=== PATIENT | male | born 1950 | race Caucasian/White ===

== ENCOUNTER 2017-06-13 12:46 | Inpatient (IN) ==
[2017-06-13] MEDS ORDERED: methylPREDNISolone SOD SUC 125 MG/2 ML VIAL IV STA (14:19)
[2017-06-13] MEDS ORDERED: LEVOFLOXACIN INJ 750 MG in PREMIX 1 EACH IV STA (14:19)
[2017-06-13] MEDS ORDERED: ONDANSETRON 4 MG/2 ML VIAL IV STA (14:19)
[2017-06-13] MEDS ORDERED: ALBUTEROL 2.5 MG/3 ML NEB RESP TX SCH (14:30)
[2017-06-13 15:04] LABS: Basophils % 0.6 % (0.0-0.8); Eosinophils # 0.1 10*3/uL (0.0-0.87); Eosinophils % 1.9 % (0.00-10.9); Hematocrit 25.8 VOL% (42.0-52.0); Hemoglobin 8.9 GM/DL (14.0-18.0); Immature Granulocytes % 0.9 %; Immature Granulocytes Absolute 0.04 #; Lymphocytes # 0.5 10*3/uL (1.4-4.0); Lymphocytes % 9.9 % (21.2-54.2); Mean Corpuscular HGB Conc 34.5 GM/DL (32-36); Mean Corpuscular Hemoglobin 35 PG (27-34); Mean Corpuscular Volume 101.6 FL (87-102); Mean Platelet Volume 8.5 FL (9.6-12.0); Monocytes # 0.5 10*3/uL (0.11-0.8); Neutrophils # 3.5 10*3/uL (1.4-7.4); Neutrophils % 75.7 % (38.7-73.9); Platelet Count 173 T/CUMM (130-400); Red Blood Count 2.54 MC/CUMM (3.8-5.5); Red Cell Distribution Width 12.7 % (9.3-17.3); White Blood Count 4.6 T/CUMM (4-12)
[2017-06-13] MEDS ORDERED: methylPREDNISolone SOD SUC 125 MG/2 ML VIAL ONE (15:08)
[2017-06-13] MEDS ORDERED: LEVOFLOXACIN INJ 150 ML IV ONE (15:08)
[2017-06-13] MEDS ORDERED: ONDANSETRON 4 MG/2 ML VIAL ONE (15:08)
[2017-06-13 15:16] LABS: INR 1.1; PT Patient Result 11.3 SECS
[2017-06-13] MEDS ORDERED: SODIUM CHLORIDE 0.9% 1,000 ML IV STA (15:29)
[2017-06-13 15:38] LABS: Alanine Aminotransferase 25 U/L (16-61); Albumin 3.8 G/DL (3.4-5.0); Alkaline Phosphatase 54 U/L (45-117); Aspartate Amino Transferase 79 U/L (0-37); Blood Urea Nitrogen 9 MG/DL (7-18); CKMB % 1.9 %; Calcium 7.7 MG/DL (8.5-10.1); Glucose 91 MG/DL (74-106); Magnesium 1.7 MG/DL (1.8-2.4); Osmolality,Calculated 245.8 MOS/KG (273-304); Potassium 3.2 MMOL/L (3.5-5.1); Sodium 123 MMOL/L (136-145); Total Protein 7.1 G/DL (6.4-8.3); Troponin I Only < 0.015 NG/ML (0.00-0.045)
[2017-06-13] MEDS ORDERED: ONDANSETRON 4 MG/2 ML VIAL IV PRN (17:37)
[2017-06-13] MEDS ORDERED: MORPHINE 2 MG/1 ML SYRINGE IV PRN (17:37)
[2017-06-13] MEDS ORDERED: guaiFENesin/DM ER 600-30 MG TABLET PO PRN (17:37)
[2017-06-13] MEDS ORDERED: NICOTINE 21 MG/24 HR PATCH TRANSDERM PRN (17:37)
[2017-06-13] MEDS ORDERED: diphenhydrAMINE CAP 25 MG CAPSULE PO PRN (17:37)
[2017-06-13] MEDS ORDERED: ACETAMINOPHEN 325 MG TABLET PO PRN (17:37)
[2017-06-13] MEDS ORDERED: DOCUSATE SODIUM 100 MG CAPSULE PO PRN (17:37)
[2017-06-13] MEDS ORDERED: ALBUTEROL 2.5 MG/3 ML NEB RESP TX PRN (17:41)
[2017-06-13] MEDS ORDERED: SODIUM CHLORIDE 0.9% 1,000 ML IV ONE (17:49)
[2017-06-13] MEDS ORDERED: LORazepam 1 MG TABLET PO PRN (17:54)
[2017-06-13] MEDS ORDERED: MAGNESIUM SULF RIDER 4 GM in PREMIX 1 EACH IV PRN (17:56)
[2017-06-13] MEDS ORDERED: MAGNESIUM SULF RIDER 2 GM in PREMIX 1 EACH IV PRN (17:56)
[2017-06-13] MEDS ORDERED: THIAMINE INJ 100 MG, FOLIC ACID INJ 1 MG, MULTIVITAMIN INJ 10 ML in SODIUM CHLORIDE 0.9... IV SCH (18:00)
[2017-06-13] MEDS ORDERED: SODIUM CHLORIDE 0.9% 1,000 ML IV SCH (18:00)
[2017-06-13] MEDS ORDERED: POTASSIUM CHLORIDE 20 MEQ TABLET PO ONE (18:30)
[2017-06-13] MEDS: fentaNYL 12 MCG/HR PATCH TRANSDERM SCH (18:57)
[2017-06-13] MEDS: ALBUTEROL/IPRATROPIUM 3 ML NEB RESP TX SCH (20:16)
[2017-06-13] MEDS: 1: THIAMINE INJ 100 MG, FOLIC ACID INJ 1 MG, MULTIVITAMIN INJ 10 ML in SODIUM CHLORIDE 0 IV SCH (21:16)
[2017-06-13] MEDS: AZITHROMYCIN INJ 500 MG in SODIUM CHLORIDE 0.9% 250 ML IV SCH (21:19)
[2017-06-13] MEDS: cefTRIAXone 1,000 MG in SYRINGE 1 EACH IV SCH (21:21)
[2017-06-13] MEDS: BUDESONIDE/FORMOTEROL 160-4.5 INHALER 6 GM INH SCH (21:26)
[2017-06-14] MEDS: ALBUTEROL/IPRATROPIUM 3 ML NEB RESP TX SCH ×4 (00:35→19:22)
[2017-06-14 04:48] LABS: Basophils % 0.2 % (0.0-0.8); Hematocrit 24.2 VOL% (42.0-52.0); Hemoglobin 8.3 GM/DL (14.0-18.0); Immature Granulocytes % 0.9 %; Immature Granulocytes Absolute 0.05 #; Lymphocytes # 0.2 10*3/uL (1.4-4.0); Lymphocytes % 3.6 % (21.2-54.2); Mean Corpuscular HGB Conc 34.3 GM/DL (32-36); Mean Corpuscular Hemoglobin 35 PG (27-34); Mean Platelet Volume 8.7 FL (9.6-12.0); Monocytes # 0.2 10*3/uL (0.11-0.8); Monocytes % 2.9 % (1.7-12.7); Neutrophils # 5.1 10*3/uL (1.4-7.4); Neutrophils % 92.4 % (38.7-73.9); Platelet Count 165 T/CUMM (130-400); Red Blood Count 2.35 MC/CUMM (3.8-5.5); Red Cell Distribution Width 12.4 % (9.3-17.3); White Blood Count 5.5 T/CUMM (4-12)
[2017-06-14 05:25] LABS: Calcium 6.8 MG/DL (8.5-10.1); Magnesium 1.6 MG/DL (1.8-2.4); Osmolality,Calculated 256.1 MOS/KG (273-304); Potassium 4.1 MMOL/L (3.5-5.1)
[2017-06-14] MEDS: methylPREDNISolone SOD SUC 40 MG/1 ML VIAL IV SCH ×3 (05:28→20:37)
[2017-06-14 06:02] LABS: Band Neutrophils 2 % (0-10); Lymphocytes 5 % (20-55); Promyelocytes 1 %; Segmented Neutrophils 87 % (50-85); Total Cells Counted 100
[2017-06-14 06:03] LABS: Hypochromasia 1+; Macrocytosis Slight; Platelet Estimate Adequate
[2017-06-14] MEDS: PANTOPRAZOLE 40 MG TABLET PO SCH (08:47)
[2017-06-14] MEDS: BUDESONIDE/FORMOTEROL 160-4.5 INHALER 6 GM INH SCH ×2 (08:47→20:35)
[2017-06-14] MEDS: TAMSULOSIN 0.4 MG CAPSULE PO SCH (08:47)
[2017-06-14] MEDS: ASPIRIN EC 81 MG TABLET PO SCH (08:47)
[2017-06-14] MEDS: 1: THIAMINE INJ 100 MG, FOLIC ACID INJ 1 MG, MULTIVITAMIN INJ 10 ML in SODIUM CHLORIDE 0 IV SCH ×2 (08:49→14:05)
[2017-06-14] MEDS: oxyCODONE/ACETAMINOPHEN 5-325 MG TABLET PO PRN ×2 (08:53→18:01)
[2017-06-14 10:50] LABS: Apearance,Urine CLEAR (Clear); Bilirubin,Urine Negative (Negative); Blood, Urine Small mg/dL (Negative); Glucose,Urine (UA) Negative (Negative); Ketones,Urine Negative (Negative); Mucus,Urine Occasional /LPF (Occasional); Nitrite,Urine Negative (Negative); Protein,Urine Negative; RBC,Urine 20 /HPF (0-4); Squamous Epithelial Cell,Urine Occasional /HPF (0-10); Urine Color Amber (Yellow); Urine Specific Gravity 1.014 (1.001-1.035); WBC,Urine 2 /HPF (0-6)
[2017-06-14] MEDS: NICOTINE 21 MG/24 HR PATCH TRANSDERM SCH (12:07)
[2017-06-14] MEDS ORDERED: CALCIUM GLUCONATE 2,000 MG in SODIUM CHLORIDE 0.9% 100 ML IV ONE (15:48)
[2017-06-14] MEDS ORDERED: MAGNESIUM SULF RIDER 2 GM in PREMIX 1 EACH IV ONE (15:49)
[2017-06-14] MEDS: SODIUM CHLORIDE 0.9% 1,000 ML IV SCH (17:17)
[2017-06-14] MEDS: cefTRIAXone 1,000 MG in SYRINGE 1 EACH IV SCH (20:35)
[2017-06-14] MEDS: AZITHROMYCIN INJ 500 MG in SODIUM CHLORIDE 0.9% 250 ML IV SCH (20:40)
[2017-06-15] MEDS: ALBUTEROL/IPRATROPIUM 3 ML NEB RESP TX SCH ×4 (00:03→19:47)
[2017-06-15] MEDS: SODIUM CHLORIDE 0.9% 1,000 ML IV SCH ×2 (01:50→14:21)
[2017-06-15] MEDS: oxyCODONE/ACETAMINOPHEN 5-325 MG TABLET PO PRN ×3 (01:52→18:15)
[2017-06-15] MEDS: methylPREDNISolone SOD SUC 40 MG/1 ML VIAL IV SCH ×3 (04:58→20:21)
[2017-06-15 05:44] LABS: Basophils % 0.2 % (0.0-0.8); Hemoglobin 8.3 GM/DL (14.0-18.0); Immature Granulocytes % 1.5 %; Immature Granulocytes Absolute 0.16 #; Lymphocytes # 0.4 10*3/uL (1.4-4.0); Lymphocytes % 3.3 % (21.2-54.2); Mean Corpuscular HGB Conc 33.2 GM/DL (32-36); Mean Corpuscular Hemoglobin 34 PG (27-34); Mean Corpuscular Volume 103.7 FL (87-102); Mean Platelet Volume 9.1 FL (9.6-12.0); Monocytes # 0.9 10*3/uL (0.11-0.8); Monocytes % 7.7 % (1.7-12.7); Neutrophils # 9.6 10*3/uL (1.4-7.4); Neutrophils % 87.3 % (38.7-73.9); Platelet Count 208 T/CUMM (130-400); Red Blood Count 2.41 MC/CUMM (3.8-5.5); Red Cell Distribution Width 13.1 % (9.3-17.3)
[2017-06-15 06:18] LABS: Albumin 3.5 G/DL (3.4-5.0); Bilirubin,Total 0.7 MG/DL (0.2-1.0); Calcium 7.5 MG/DL (8.5-10.1); Osmolality,Calculated 261.7 MOS/KG (273-304); Total Protein 6.3 G/DL (6.4-8.3)
[2017-06-15 06:48] LABS: Band Neutrophils 26 % (0-10); Lymphocytes 4 % (20-55); Segmented Neutrophils 66 % (50-85); Total Cells Counted 100
[2017-06-15] MEDS: BUDESONIDE/FORMOTEROL 160-4.5 INHALER 6 GM INH SCH ×2 (08:38→20:30)
[2017-06-15] MEDS: NICOTINE 21 MG/24 HR PATCH TRANSDERM SCH (08:38)
[2017-06-15] MEDS: PANTOPRAZOLE 40 MG TABLET PO SCH (08:39)
[2017-06-15] MEDS: TAMSULOSIN 0.4 MG CAPSULE PO SCH (08:39)
[2017-06-15] MEDS: ASPIRIN EC 81 MG TABLET PO SCH (08:39)
[2017-06-15] MEDS: 1: THIAMINE INJ 100 MG, FOLIC ACID INJ 1 MG, MULTIVITAMIN INJ 10 ML in SODIUM CHLORIDE 0 IV SCH (10:53)
[2017-06-15] MEDS ORDERED: SODIUM PHOSPHATE ENEMA 133 ML BOTTLE RECTAL ONE ×2 (11:38→15:28)
[2017-06-15] MEDS ORDERED: BISACODYL 5 MG TABLET PO ONE (11:38)
[2017-06-15] MEDS: cefTRIAXone 1,000 MG in SYRINGE 1 EACH IV SCH (20:18)
[2017-06-15] MEDS: ZALEPLON 5 MG CAPSULE PO SCH (20:24)
[2017-06-15] MEDS: AZITHROMYCIN INJ 500 MG in SODIUM CHLORIDE 0.9% 250 ML IV SCH (20:30)
[2017-06-16] MEDS: ALBUTEROL/IPRATROPIUM 3 ML NEB RESP TX SCH ×4 (01:25→19:46)
[2017-06-16] MEDS: oxyCODONE/ACETAMINOPHEN 5-325 MG TABLET PO PRN ×3 (03:19→17:42)
[2017-06-16] MEDS: methylPREDNISolone SOD SUC 40 MG/1 ML VIAL IV SCH ×4 (03:20→21:45)
[2017-06-16] MEDS: SODIUM CHLORIDE 0.9% 1,000 ML IV SCH (04:57)
[2017-06-16 05:06] LABS: Basophils % 0.1 % (0.0-0.8); Hematocrit 25.5 VOL% (42.0-52.0); Hemoglobin 8.7 GM/DL (14.0-18.0); Immature Granulocytes % 1.6 %; Immature Granulocytes Absolute 0.17 #; Lymphocytes # 0.4 10*3/uL (1.4-4.0); Lymphocytes % 3.4 % (21.2-54.2); Mean Corpuscular HGB Conc 34.1 GM/DL (32-36); Mean Corpuscular Hemoglobin 36 PG (27-34); Mean Corpuscular Volume 104.1 FL (87-102); Mean Platelet Volume 8.9 FL (9.6-12.0); Monocytes # 0.5 10*3/uL (0.11-0.8); Monocytes % 4.2 % (1.7-12.7); Neutrophils # 9.7 10*3/uL (1.4-7.4); Neutrophils % 90.7 % (38.7-73.9); Platelet Count 209 T/CUMM (130-400); Red Blood Count 2.45 MC/CUMM (3.8-5.5); Red Cell Distribution Width 13.2 % (9.3-17.3); White Blood Count 10.7 T/CUMM (4-12)
[2017-06-16 05:31] LABS: Albumin 3.5 G/DL (3.4-5.0); Bilirubin,Total 0.5 MG/DL (0.2-1.0); Calcium 7.2 MG/DL (8.5-10.1); Osmolality,Calculated 255.1 MOS/KG (273-304); Potassium 4.2 MMOL/L (3.5-5.1); Total Protein 6.4 G/DL (6.4-8.3)
[2017-06-16 05:54] LABS: Band Neutrophils 3 % (0-10); Lymphocytes 4 % (20-55); Segmented Neutrophils 91 % (50-85); Total Cells Counted 100
[2017-06-16 05:56] LABS: Hypochromasia 1+; Platelet Estimate Normal
[2017-06-16] MEDS: NICOTINE 21 MG/24 HR PATCH TRANSDERM SCH (08:54)
[2017-06-16] MEDS: TAMSULOSIN 0.4 MG CAPSULE PO SCH (08:55)
[2017-06-16] MEDS: ASPIRIN EC 81 MG TABLET PO SCH (08:55)
[2017-06-16] MEDS: PANTOPRAZOLE 40 MG TABLET PO SCH (08:55)
[2017-06-16] MEDS: BUDESONIDE/FORMOTEROL 160-4.5 INHALER 6 GM INH SCH ×2 (08:58→21:49)
[2017-06-16] MEDS ORDERED: FUROSEMIDE 20 MG/2 ML VIAL IV ONE ×2 (10:35→14:52)
[2017-06-16] MEDS ORDERED: CALCIUM GLUCONATE 2,000 MG in SODIUM CHLORIDE 0.9% 100 ML IV ONE (14:31)
[2017-06-16] MEDS: CEFEPIME 2,000 MG in SYRINGE 1 EACH IV SCH (15:51)
[2017-06-16] MEDS: fentaNYL 12 MCG/HR PATCH TRANSDERM SCH (17:43)
[2017-06-16] MEDS: TOLVAPTAN 15 MG TABLET PO SCH (21:44)
[2017-06-16] MEDS: AZITHROMYCIN INJ 500 MG in SODIUM CHLORIDE 0.9% 250 ML IV SCH (21:53)
[2017-06-16] MEDS: ZALEPLON 5 MG CAPSULE PO SCH (23:18)
[2017-06-17] MEDS: CEFEPIME 2,000 MG in SYRINGE 1 EACH IV SCH ×3 (00:08→17:44)
[2017-06-17] MEDS: ALBUTEROL/IPRATROPIUM 3 ML NEB RESP TX SCH ×5 (00:26→23:53)
[2017-06-17 05:13] LABS: Basophils % 0.1 % (0.0-0.8); Hematocrit 27.6 VOL% (42.0-52.0); Hemoglobin 9.8 GM/DL (14.0-18.0); Immature Granulocytes % 2.2 %; Lymphocytes # 0.3 10*3/uL (1.4-4.0); Lymphocytes % 2.3 % (21.2-54.2); Mean Corpuscular HGB Conc 35.5 GM/DL (32-36); Mean Corpuscular Hemoglobin 36 PG (27-34); Mean Corpuscular Volume 101.1 FL (87-102); Mean Platelet Volume 8.9 FL (9.6-12.0); Monocytes # 0.7 10*3/uL (0.11-0.8); Monocytes % 5.1 % (1.7-12.7); Neutrophils # 12.3 10*3/uL (1.4-7.4); Neutrophils % 90.3 % (38.7-73.9); Platelet Count 239 T/CUMM (130-400); Red Blood Count 2.73 MC/CUMM (3.8-5.5); Red Cell Distribution Width 13.5 % (9.3-17.3); White Blood Count 13.6 T/CUMM (4-12)
[2017-06-17 05:40] LABS: Band Neutrophils 1 % (0-10); Lymphocytes 2 % (20-55); Segmented Neutrophils 91 % (50-85); Total Cells Counted 100
[2017-06-17 05:41] LABS: Hypochromasia 1+; Macrocytosis Slight; Platelet Estimate Normal
[2017-06-17 05:49] LABS: Albumin 3.7 G/DL (3.4-5.0); Bilirubin,Total 1.1 MG/DL (0.2-1.0); Calcium 7.6 MG/DL (8.5-10.1); Osmolality,Calculated 264.4 MOS/KG (273-304); Potassium 3.8 MMOL/L (3.5-5.1); Total Protein 6.7 G/DL (6.4-8.3)
[2017-06-17] MEDS: methylPREDNISolone SOD SUC 40 MG/1 ML VIAL IV SCH ×3 (06:04→20:46)
[2017-06-17] MEDS: TAMSULOSIN 0.4 MG CAPSULE PO SCH (09:06)
[2017-06-17] MEDS: ASPIRIN EC 81 MG TABLET PO SCH (09:19)
[2017-06-17] MEDS: BUDESONIDE/FORMOTEROL 160-4.5 INHALER 6 GM INH SCH ×2 (09:20→20:55)
[2017-06-17] MEDS: PANTOPRAZOLE 40 MG TABLET PO SCH (09:20)
[2017-06-17] MEDS: TOLVAPTAN 15 MG TABLET PO SCH (09:20)
[2017-06-17] MEDS ORDERED: POTASSIUM CHLORIDE 20 MEQ TABLET PO ONE (10:25)
[2017-06-17] MEDS ORDERED: FUROSEMIDE 40 MG/4 ML VIAL IV ONE (10:25)
[2017-06-17] MEDS: NICOTINE 21 MG/24 HR PATCH TRANSDERM SCH (11:06)
[2017-06-17] MEDS: oxyCODONE/ACETAMINOPHEN 5-325 MG TABLET PO PRN ×2 (13:48→21:20)
[2017-06-17] MEDS: AZITHROMYCIN INJ 500 MG in SODIUM CHLORIDE 0.9% 250 ML IV SCH (20:54)
[2017-06-18] MEDS: CEFEPIME 2,000 MG in SYRINGE 1 EACH IV SCH ×3 (00:20→17:37)
[2017-06-18 05:05] LABS: Basophils % 0.1 % (0.0-0.8); Hematocrit 26.4 VOL% (42.0-52.0); Hemoglobin 9.1 GM/DL (14.0-18.0); Immature Granulocytes % 2.5 %; Immature Granulocytes Absolute 0.34 #; Lymphocytes # 0.3 10*3/uL (1.4-4.0); Lymphocytes % 2.1 % (21.2-54.2); Mean Corpuscular HGB Conc 34.5 GM/DL (32-36); Mean Corpuscular Hemoglobin 35 PG (27-34); Mean Corpuscular Volume 102.7 FL (87-102); Monocytes # 0.7 10*3/uL (0.11-0.8); Monocytes % 5.2 % (1.7-12.7); Neutrophils # 12.2 10*3/uL (1.4-7.4); Neutrophils % 90.1 % (38.7-73.9); Platelet Count 226 T/CUMM (130-400); Red Blood Count 2.57 MC/CUMM (3.8-5.5); Red Cell Distribution Width 13.9 % (9.3-17.3); White Blood Count 13.6 T/CUMM (4-12)
[2017-06-18] MEDS: methylPREDNISolone SOD SUC 40 MG/1 ML VIAL IV SCH ×3 (05:16→20:56)
[2017-06-18 05:27] LABS: Calcium 7.9 MG/DL (8.5-10.1); Osmolality,Calculated 269.2 MOS/KG (273-304); Potassium 3.8 MMOL/L (3.5-5.1)
[2017-06-18 06:07] LABS: Hypochromasia 1+; Lymphocytes 3 % (20-55); Macrocytosis 1+; Segmented Neutrophils 91 % (50-85); Total Cells Counted 100
[2017-06-18 06:08] LABS: Platelet Estimate Normal
[2017-06-18] MEDS: PANTOPRAZOLE 40 MG TABLET PO SCH (08:43)
[2017-06-18] MEDS: TAMSULOSIN 0.4 MG CAPSULE PO SCH (08:43)
[2017-06-18] MEDS: ASPIRIN EC 81 MG TABLET PO SCH (08:43)
[2017-06-18] MEDS: NICOTINE 21 MG/24 HR PATCH TRANSDERM SCH (08:43)
[2017-06-18] MEDS: BUDESONIDE/FORMOTEROL 160-4.5 INHALER 6 GM INH SCH ×2 (08:48→21:04)
[2017-06-18] MEDS: oxyCODONE/ACETAMINOPHEN 5-325 MG TABLET PO PRN ×3 (11:04→23:53)
[2017-06-18] MEDS: ALBUTEROL/IPRATROPIUM 3 ML NEB RESP TX SCH ×4 (11:18→23:56)
[2017-06-18] MEDS: TOLVAPTAN 15 MG TABLET PO SCH (15:46)
[2017-06-18] MEDS: AZITHROMYCIN INJ 500 MG in SODIUM CHLORIDE 0.9% 250 ML IV SCH (21:07)
[2017-06-19] MEDS: CEFEPIME 2,000 MG in SYRINGE 1 EACH IV SCH ×2 (02:56→09:05)
[2017-06-19 05:14] LABS: Basophils % 0.2 % (0.0-0.8); Hematocrit 24.8 VOL% (42.0-52.0); Hemoglobin 8.3 GM/DL (14.0-18.0); Immature Granulocytes % 2.7 %; Immature Granulocytes Absolute 0.34 #; Lymphocytes # 0.4 10*3/uL (1.4-4.0); Lymphocytes % 2.9 % (21.2-54.2); Mean Corpuscular HGB Conc 33.5 GM/DL (32-36); Mean Corpuscular Hemoglobin 36 PG (27-34); Mean Corpuscular Volume 106.4 FL (87-102); Monocytes # 0.6 10*3/uL (0.11-0.8); Monocytes % 5.1 % (1.7-12.7); Neutrophils # 11.3 10*3/uL (1.4-7.4); Neutrophils % 89.1 % (38.7-73.9); Platelet Count 203 T/CUMM (130-400); Red Blood Count 2.33 MC/CUMM (3.8-5.5); Red Cell Distribution Width 13.9 % (9.3-17.3); White Blood Count 12.6 T/CUMM (4-12)
[2017-06-19 05:36] LABS: Band Neutrophils 2 % (0-10); Giant Platelets Few; Hypochromasia 1+; Lymphocytes 1 % (20-55); Macrocytosis Slight; Platelet Estimate Adequate; Segmented Neutrophils 95 % (50-85); Total Cells Counted 100
[2017-06-19 05:38] LABS: Calcium 7.6 MG/DL (8.5-10.1); Osmolality,Calculated 272.1 MOS/KG (273-304); Potassium 3.8 MMOL/L (3.5-5.1)
[2017-06-19] MEDS: ALBUTEROL/IPRATROPIUM 3 ML NEB RESP TX SCH ×2 (06:58→13:52)
[2017-06-19] MEDS: methylPREDNISolone SOD SUC 40 MG/1 ML VIAL IV SCH ×2 (07:39→14:04)
[2017-06-19] MEDS: TAMSULOSIN 0.4 MG CAPSULE PO SCH (09:08)
[2017-06-19] MEDS: TOLVAPTAN 15 MG TABLET PO SCH (09:08)
[2017-06-19] MEDS: NICOTINE 21 MG/24 HR PATCH TRANSDERM SCH (09:08)
[2017-06-19] MEDS: BUDESONIDE/FORMOTEROL 160-4.5 INHALER 6 GM INH SCH (09:08)
[2017-06-19] MEDS: PANTOPRAZOLE 40 MG TABLET PO SCH (09:09)
[2017-06-19] MEDS: ASPIRIN EC 81 MG TABLET PO SCH (09:09)
[2017-06-19] MEDS: oxyCODONE/ACETAMINOPHEN 5-325 MG TABLET PO PRN (10:18)
[2017-06-19] MEDS ORDERED: HEPARIN LOCK FLUSH 500 UNIT/5 ML SYRINGE IV ONE (13:46)
[2017-06-19 13:52] VITALS: BP 119/60
== END 2017-06-19 14:45 | disposition home health service (06) | DRG 194 ==
LOC: N.ED 12:46 → N.EDINP 17:04 → N.4E 17:56
PROVIDERS: ADMIT Internal Medicine; ATTEND Internal Medicine

== ENCOUNTER 2017-06-23 19:21 | Inpatient (IN) ==
[2017-06-23 20:58] LABS: Basophils % 0.1 % (0.0-0.8); Eosinophils % 0.1 % (0.00-10.9); Hematocrit 25.3 VOL% (42.0-52.0); Hemoglobin 8.8 GM/DL (14.0-18.0); Immature Granulocytes % 2.1 %; Immature Granulocytes Absolute 0.26 #; Lymphocytes # 0.4 10*3/uL (1.4-4.0); Lymphocytes % 3.6 % (21.2-54.2); Mean Corpuscular HGB Conc 34.8 GM/DL (32-36); Mean Corpuscular Hemoglobin 36 PG (27-34); Mean Corpuscular Volume 102.8 FL (87-102); Mean Platelet Volume 8.8 FL (9.6-12.0); Monocytes % 8.5 % (1.7-12.7); Neutrophils # 10.5 10*3/uL (1.4-7.4); Neutrophils % 85.6 % (38.7-73.9); Platelet Count 196 T/CUMM (130-400); Red Blood Count 2.46 MC/CUMM (3.8-5.5); Red Cell Distribution Width 13.1 % (9.3-17.3); White Blood Count 12.2 T/CUMM (4-12)
[2017-06-23 21:07] LABS: INR 1.2; PT Patient Result 12.2 SECS
[2017-06-23 21:13] LABS: Blood Urea Nitrogen 17 MG/DL (7-18); Calcium 8.2 MG/DL (8.5-10.1); Glucose 99 MG/DL (74-106); Osmolality,Calculated 254.4 MOS/KG (273-304); Potassium 3.6 MMOL/L (3.5-5.1); Sodium 126 MMOL/L (136-145)
[2017-06-23 21:19] LABS: CKMB % 2.6 %; Troponin I Only 0.018 NG/ML (0.00-0.045)
[2017-06-23] MEDS ORDERED: SODIUM CHLORIDE 0.9% 500 ML IV STA (21:30)
[2017-06-23] MEDS ORDERED: TEMAZEPAM 7.5 MG CAPSULE PO PRN (23:06)
[2017-06-23] MEDS ORDERED: chlorproMAZINE INJ 50 MG in SODIUM CHLORIDE 0.9% 100 ML IV PRN (23:06)
[2017-06-23] MEDS ORDERED: diphenhydrAMINE CAP 25 MG CAPSULE PO PRN (23:06)
[2017-06-23] MEDS ORDERED: ACETAMINOPHEN 325 MG TABLET PO PRN (23:06)
[2017-06-23] MEDS ORDERED: LACTULOSE 20 GM/30 ML UDCUP PO PRN (23:06)
[2017-06-23] MEDS ORDERED: LOPERAMIDE 2 MG CAPSULE PO PRN ×2 (23:06)
[2017-06-23] MEDS ORDERED: chlorproMAZINE 25 MG TABLET PO PRN (23:06)
[2017-06-23] MEDS ORDERED: chlorproMAZINE INJ 25 MG in SODIUM CHLORIDE 0.9% 100 ML IV PRN (23:06)
[2017-06-23] MEDS ORDERED: ALUMINUM/MAGNES/SIMETH MAX STR 30 ML UDCUP PO PRN (23:06)
[2017-06-23] MEDS ORDERED: PROMETHAZINE INJ 25 MG in SODIUM CHLORIDE 0.9% 50 ML IV PRN (23:06)
[2017-06-23] MEDS ORDERED: ONDANSETRON 4 MG/2 ML VIAL IV PRN (23:06)
[2017-06-23] MEDS ORDERED: BENZTROPINE 2 MG/2 ML AMP IV PRN (23:06)
[2017-06-23] MEDS ORDERED: guaiFENesin 200 MG/10 ML UDCUP PO PRN (23:06)
[2017-06-23] MEDS ORDERED: MYLANTA/LIDO VISC 2:1 300 ML BOTTLE SWISH/SWAL PRN (23:06)
[2017-06-23] MEDS ORDERED: traMADol 50 MG TABLET PO PRN (23:06)
[2017-06-23] MEDS ORDERED: ALPRAZolam 0.25 MG TABLET PO PRN (23:06)
[2017-06-23] MEDS ORDERED: MAGNESIUM HYDROXIDE SUSP 30 ML UDCUP PO PRN (23:06)
[2017-06-23] MEDS ORDERED: MYLANTA/LIDO VISC 2:1 300 ML BOTTLE SWISH/SPIT PRN (23:06)
[2017-06-23 23:17] LABS: Band Neutrophils 2 % (0-10); Lymphocytes 11 % (20-55); Platelet Estimate Normal; Segmented Neutrophils 84 % (50-85); Total Cells Counted 100
[2017-06-23 23:18] LABS: Macrocytosis 3+
[2017-06-24] MEDS ORDERED: SODIUM CHLORIDE 3% INJ 500 ML IV SCH (00:30)
[2017-06-24 03:09] LABS: Albumin 3.9 G/DL (3.4-5.0); Bilirubin,Total 1.1 MG/DL (0.2-1.0); Osmolality,Calculated 255.4 MOS/KG (273-304); Potassium 3.7 MMOL/L (3.5-5.1); Total Protein 6.7 G/DL (6.4-8.3); Uric Acid 2.9 MG/DL (3.5-7.2)
[2017-06-24] MEDS ORDERED: BENZONATATE 100 MG CAPSULE PO PRN (07:55)
[2017-06-24] MEDS ORDERED: fentaNYL 12 MCG/HR PATCH TRANSDERM SCH (08:00)
[2017-06-24] MEDS: ALBUTEROL 2.5 MG/3 ML NEB RESP TX SCH ×2 (08:55→11:17)
[2017-06-24] MEDS ORDERED: AMOXICILLIN/CLAV 875 MG TABLET PO SCH (09:00)
[2017-06-24] MEDS ORDERED: PANTOPRAZOLE 40 MG VIAL IV SCH (09:00)
[2017-06-24] MEDS: oxyCODONE/ACETAMINOPHEN 5-325 MG TABLET PO SCH ×4 (09:10→21:20)
[2017-06-24] MEDS: predniSONE 20 MG TABLET PO SCH (09:18)
[2017-06-24] MEDS: TAMSULOSIN 0.4 MG CAPSULE PO SCH (09:18)
[2017-06-24] MEDS: PANTOPRAZOLE 40 MG TABLET PO SCH (09:19)
[2017-06-24 12:24] LABS: Apearance,Urine CLEAR (Clear); Bilirubin,Urine Negative (Negative); Blood, Urine Small mg/dL (Negative); Glucose,Urine (UA) Negative (Negative); Ketones,Urine Negative (Negative); Mucus,Urine Occasional /LPF (Occasional); Nitrite,Urine Negative (Negative); Protein,Urine Negative; RBC,Urine 5 /HPF (0-4); Urine Color Yellow (Yellow); Urine Specific Gravity > 1.060 (1.001-1.035); Urine Urobilinogen < 2.0 EU/DL (0.2-1.0); WBC,Urine 2 /HPF (0-6)
[2017-06-24] MEDS: NICOTINE 21 MG/24 HR PATCH TRANSDERM SCH (12:53)
[2017-06-24] MEDS ORDERED: ALBUTEROL 2.5 MG/3 ML NEB RESP TX PRN (14:33)
[2017-06-24 15:09] LABS: Calcium 7.3 MG/DL (8.5-10.1); Osmolality,Calculated 255.1 MOS/KG (273-304); Potassium 3.2 MMOL/L (3.5-5.1)
[2017-06-24] MEDS: LEVOFLOXACIN INJ 750 MG in PREMIX 1 EACH IV SCH (16:57)
[2017-06-24] MEDS: PIPERACILLIN/TAZOBACTAM 3,375 MG in SODIUM CHLORIDE 0.9% 100 ML IV SCH (16:58)
[2017-06-24] MEDS: ALBUTEROL/IPRATROPIUM 3 ML NEB RESP TX SCH (20:19)
[2017-06-25] MEDS: oxyCODONE/ACETAMINOPHEN 5-325 MG TABLET PO SCH ×7 (00:27→23:52)
[2017-06-25] MEDS: PIPERACILLIN/TAZOBACTAM 3,375 MG in SODIUM CHLORIDE 0.9% 100 ML IV SCH ×3 (00:27→20:39)
[2017-06-25] MEDS: ALBUTEROL/IPRATROPIUM 3 ML NEB RESP TX SCH ×4 (00:57→20:04)
[2017-06-25 04:13] LABS: Basophils % 0.2 % (0.0-0.8); Eosinophils % 0.1 % (0.00-10.9); Hematocrit 23.3 VOL% (42.0-52.0); Hemoglobin 7.8 GM/DL (14.0-18.0); Immature Granulocytes % 1.3 %; Immature Granulocytes Absolute 0.15 #; Lymphocytes # 0.4 10*3/uL (1.4-4.0); Lymphocytes % 2.9 % (21.2-54.2); Mean Corpuscular HGB Conc 33.5 GM/DL (32-36); Mean Corpuscular Hemoglobin 36 PG (27-34); Mean Corpuscular Volume 106.4 FL (87-102); Mean Platelet Volume 8.8 FL (9.6-12.0); Monocytes # 0.8 10*3/uL (0.11-0.8); Monocytes % 6.3 % (1.7-12.7); Neutrophils # 10.7 10*3/uL (1.4-7.4); Neutrophils % 89.2 % (38.7-73.9); Platelet Count 173 T/CUMM (130-400); Red Blood Count 2.19 MC/CUMM (3.8-5.5); Red Cell Distribution Width 13.4 % (9.3-17.3)
[2017-06-25 04:48] LABS: Albumin 3.1 G/DL (3.4-5.0); Bilirubin,Total 1.3 MG/DL (0.2-1.0); Calcium 7.5 MG/DL (8.5-10.1); Osmolality,Calculated 259.8 MOS/KG (273-304); Potassium 3.2 MMOL/L (3.5-5.1); Total Protein 5.8 G/DL (6.4-8.3)
[2017-06-25 04:49] LABS: Giant Platelets Few; Hypochromasia 1+; Platelet Estimate Normal
[2017-06-25 04:50] LABS: Macrocytosis Slight; Ovalocytes Slight
[2017-06-25] MEDS ORDERED: SODIUM CHLORIDE 0.9% 1,000 ML IV PRN (08:15)
[2017-06-25] MEDS: TAMSULOSIN 0.4 MG CAPSULE PO SCH (09:41)
[2017-06-25] MEDS: PANTOPRAZOLE 40 MG TABLET PO SCH (09:41)
[2017-06-25] MEDS: NICOTINE 21 MG/24 HR PATCH TRANSDERM SCH (09:41)
[2017-06-25] MEDS: predniSONE 20 MG TABLET PO SCH (09:41)
[2017-06-25] MEDS: POTASSIUM CHLORIDE 20 MEQ TABLET PO SCH ×5 (09:41→20:32)
[2017-06-25] MEDS: THEOPHYLLINE ER (24 HR) 300 MG CAPSULE PO SCH (11:33)
[2017-06-25] MEDS: ROFLUMILAST 500 MCG TABLET PO SCH (11:33)
[2017-06-25] MEDS: POTASSIUM CHLORIDE RIDER 10 MEQ in PREMIX 1 EACH IV SCH ×2 (15:31→15:32)
[2017-06-25] MEDS: LEVOFLOXACIN INJ 750 MG in PREMIX 1 EACH IV SCH (15:36)
[2017-06-26] MEDS: oxyCODONE/ACETAMINOPHEN 5-325 MG TABLET PO SCH ×6 (05:10→21:04)
[2017-06-26] MEDS: PIPERACILLIN/TAZOBACTAM 3,375 MG in SODIUM CHLORIDE 0.9% 100 ML IV SCH ×3 (05:38→21:13)
[2017-06-26 06:04] LABS: Basophils % 0.2 % (0.0-0.8); Hematocrit 28.2 VOL% (42.0-52.0); Immature Granulocytes % 1.3 %; Immature Granulocytes Absolute 0.16 #; Lymphocytes # 0.4 10*3/uL (1.4-4.0); Mean Corpuscular HGB Conc 34.4 GM/DL (32-36); Mean Corpuscular Hemoglobin 34 PG (27-34); Mean Corpuscular Volume 98.6 FL (87-102); Mean Platelet Volume 9.2 FL (9.6-12.0); Monocytes # 0.9 10*3/uL (0.11-0.8); Monocytes % 6.9 % (1.7-12.7); Neutrophils # 11.3 10*3/uL (1.4-7.4); Neutrophils % 88.6 % (38.7-73.9); Platelet Count 188 T/CUMM (130-400); Red Cell Distribution Width 16.4 % (9.3-17.3); White Blood Count 12.8 T/CUMM (4-12)
[2017-06-26 06:05] LABS: Red Blood Count 2.86 MC/CUMM (3.8-5.5)
[2017-06-26 06:06] LABS: Hemoglobin 9.7 GM/DL (14.0-18.0)
[2017-06-26 06:27] LABS: Band Neutrophils 1 % (0-10); Burr Cells Slight; Hypochromasia 1+; Lymphocytes 4 % (20-55); Macrocytosis Slight; Nucleated Red Blood Cells 1 (0-5); Ovalocytes Slight; Platelet Estimate Normal; Segmented Neutrophils 88 % (50-85); Total Cells Counted 100
[2017-06-26 06:42] LABS: Calcium 7.8 MG/DL (8.5-10.1); Osmolality,Calculated 263.5 MOS/KG (273-304); Potassium 4.3 MMOL/L (3.5-5.1)
[2017-06-26] MEDS: ALBUTEROL/IPRATROPIUM 3 ML NEB RESP TX SCH ×4 (07:42→19:13)
[2017-06-26] MEDS: POTASSIUM CHLORIDE 20 MEQ TABLET PO SCH ×2 (08:12→21:04)
[2017-06-26] MEDS: THEOPHYLLINE ER (24 HR) 300 MG CAPSULE PO SCH (08:12)
[2017-06-26] MEDS: TAMSULOSIN 0.4 MG CAPSULE PO SCH (08:12)
[2017-06-26] MEDS: PANTOPRAZOLE 40 MG TABLET PO SCH (08:12)
[2017-06-26] MEDS: ROFLUMILAST 500 MCG TABLET PO SCH (08:12)
[2017-06-26] MEDS: predniSONE 20 MG TABLET PO SCH (08:12)
[2017-06-26] MEDS: NICOTINE 21 MG/24 HR PATCH TRANSDERM SCH (08:13)
[2017-06-26] MEDS: LEVOFLOXACIN INJ 750 MG in PREMIX 1 EACH IV SCH (16:24)
[2017-06-27] MEDS: ALBUTEROL/IPRATROPIUM 3 ML NEB RESP TX SCH ×4 (00:17→18:12)
[2017-06-27] MEDS: oxyCODONE/ACETAMINOPHEN 5-325 MG TABLET PO SCH ×6 (01:32→20:23)
[2017-06-27] MEDS: PIPERACILLIN/TAZOBACTAM 3,375 MG in SODIUM CHLORIDE 0.9% 100 ML IV SCH ×3 (05:01→20:25)
[2017-06-27 05:29] LABS: Basophils % 0.1 % (0.0-0.8); Hematocrit 27.8 VOL% (42.0-52.0); Hemoglobin 9.5 GM/DL (14.0-18.0); Immature Granulocytes % 0.9 %; Lymphocytes # 0.4 10*3/uL (1.4-4.0); Lymphocytes % 3.2 % (21.2-54.2); Mean Corpuscular HGB Conc 34.2 GM/DL (32-36); Mean Corpuscular Hemoglobin 34 PG (27-34); Mean Corpuscular Volume 99.6 FL (87-102); Mean Platelet Volume 8.9 FL (9.6-12.0); Monocytes # 0.9 10*3/uL (0.11-0.8); Monocytes % 7.6 % (1.7-12.7); Neutrophils # 10.1 10*3/uL (1.4-7.4); Neutrophils % 88.2 % (38.7-73.9); Platelet Count 191 T/CUMM (130-400); Red Blood Count 2.79 MC/CUMM (3.8-5.5); Red Cell Distribution Width 16.2 % (9.3-17.3); White Blood Count 11.4 T/CUMM (4-12)
[2017-06-27 05:54] LABS: Burr Cells Slight; Giant Platelets Few; Hypochromasia 1+; Lymphocytes 5 % (20-55); Ovalocytes Slight; Platelet Estimate Adequate; Segmented Neutrophils 91 % (50-85); Total Cells Counted 100
[2017-06-27 05:55] LABS: Macrocytosis Slight
[2017-06-27 06:10] LABS: Calcium 7.6 MG/DL (8.5-10.1); Osmolality,Calculated 261.7 MOS/KG (273-304); Potassium 4.1 MMOL/L (3.5-5.1)
[2017-06-27] MEDS: ROFLUMILAST 500 MCG TABLET PO SCH (09:12)
[2017-06-27] MEDS: PANTOPRAZOLE 40 MG TABLET PO SCH (09:16)
[2017-06-27] MEDS: predniSONE 20 MG TABLET PO SCH (09:17)
[2017-06-27] MEDS: THEOPHYLLINE ER (24 HR) 300 MG CAPSULE PO SCH (09:19)
[2017-06-27] MEDS: TAMSULOSIN 0.4 MG CAPSULE PO SCH (09:21)
[2017-06-27] MEDS: POTASSIUM CHLORIDE 20 MEQ TABLET PO SCH ×2 (09:22→20:25)
[2017-06-27] MEDS: NYSTATIN 500,000 UNIT/5 ML UDCUP SWISH/SWAL SCH ×4 (09:23→20:23)
[2017-06-27] MEDS: NICOTINE 21 MG/24 HR PATCH TRANSDERM SCH (09:24)
[2017-06-27] MEDS: LEVOFLOXACIN INJ 750 MG in PREMIX 1 EACH IV SCH (18:42)
[2017-06-28] MEDS: oxyCODONE/ACETAMINOPHEN 5-325 MG TABLET PO SCH ×6 (00:17→20:33)
[2017-06-28] MEDS: ALBUTEROL/IPRATROPIUM 3 ML NEB RESP TX SCH ×5 (02:38→23:52)
[2017-06-28] MEDS: PIPERACILLIN/TAZOBACTAM 3,375 MG in SODIUM CHLORIDE 0.9% 100 ML IV SCH ×3 (06:08→20:32)
[2017-06-28] MEDS: ROFLUMILAST 500 MCG TABLET PO SCH (10:29)
[2017-06-28] MEDS: predniSONE 20 MG TABLET PO SCH (10:29)
[2017-06-28] MEDS: THEOPHYLLINE ER (24 HR) 300 MG CAPSULE PO SCH (10:30)
[2017-06-28] MEDS: TAMSULOSIN 0.4 MG CAPSULE PO SCH (10:31)
[2017-06-28] MEDS: PANTOPRAZOLE 40 MG TABLET PO SCH (10:31)
[2017-06-28] MEDS: POTASSIUM CHLORIDE 20 MEQ TABLET PO SCH ×2 (10:35→20:33)
[2017-06-28] MEDS: NICOTINE 21 MG/24 HR PATCH TRANSDERM SCH (10:36)
[2017-06-28] MEDS: NYSTATIN 500,000 UNIT/5 ML UDCUP SWISH/SWAL SCH ×4 (10:39→20:33)
[2017-06-28] MEDS: LEVOFLOXACIN INJ 750 MG in PREMIX 1 EACH IV SCH (18:27)
[2017-06-29] MEDS: oxyCODONE/ACETAMINOPHEN 5-325 MG TABLET PO SCH ×6 (01:35→20:23)
[2017-06-29] MEDS: PIPERACILLIN/TAZOBACTAM 3,375 MG in SODIUM CHLORIDE 0.9% 100 ML IV SCH ×2 (04:14→17:11)
[2017-06-29 06:03] LABS: Basophils % 0.1 % (0.0-0.8); Hemoglobin 11.1 GM/DL (14.0-18.0); Immature Granulocytes % 1.1 %; Immature Granulocytes Absolute 0.09 #; Lymphocytes # 0.3 10*3/uL (1.4-4.0); Lymphocytes % 3.9 % (21.2-54.2); Mean Corpuscular HGB Conc 35.8 GM/DL (32-36); Mean Corpuscular Hemoglobin 35 PG (27-34); Mean Corpuscular Volume 96.9 FL (87-102); Monocytes # 0.8 10*3/uL (0.11-0.8); Monocytes % 9.3 % (1.7-12.7); Neutrophils # 7.3 10*3/uL (1.4-7.4); Neutrophils % 85.6 % (38.7-73.9); Platelet Count 243 T/CUMM (130-400); Red Cell Distribution Width 15.5 % (9.3-17.3); White Blood Count 8.5 T/CUMM (4-12)
[2017-06-29 06:30] LABS: Albumin 3.4 G/DL (3.4-5.0); Bilirubin,Total 1.4 MG/DL (0.2-1.0); Calcium 7.8 MG/DL (8.5-10.1); Osmolality,Calculated 255.9 MOS/KG (273-304); Potassium 4.1 MMOL/L (3.5-5.1); Total Protein 6.7 G/DL (6.4-8.3)
[2017-06-29] MEDS: ALBUTEROL/IPRATROPIUM 3 ML NEB RESP TX SCH ×3 (07:01→19:44)
[2017-06-29 07:22] LABS: Band Neutrophils 1 % (0-10); Hypochromasia 1+; Lymphocytes 4 % (20-55); Ovalocytes Slight; Platelet Estimate Adequate; Segmented Neutrophils 91 % (50-85); Total Cells Counted 100
[2017-06-29 07:23] LABS: Macrocytosis Slight
[2017-06-29] MEDS: PANTOPRAZOLE 40 MG TABLET PO SCH (09:30)
[2017-06-29] MEDS: NYSTATIN 500,000 UNIT/5 ML UDCUP SWISH/SWAL SCH ×4 (09:30→20:23)
[2017-06-29] MEDS: TAMSULOSIN 0.4 MG CAPSULE PO SCH (09:30)
[2017-06-29] MEDS: POTASSIUM CHLORIDE 20 MEQ TABLET PO SCH ×2 (09:30→20:24)
[2017-06-29] MEDS: ROFLUMILAST 500 MCG TABLET PO SCH (11:53)
[2017-06-29] MEDS: CITALOPRAM 20 MG TABLET PO SCH (11:54)
[2017-06-29] MEDS: NICOTINE 21 MG/24 HR PATCH TRANSDERM SCH (11:55)
[2017-06-29] MEDS: THEOPHYLLINE ER (24 HR) 300 MG CAPSULE PO SCH (11:56)
[2017-06-29] MEDS: LORazepam 2 MG/1 ML VIAL IV PRN ×2 (12:59→20:28)
[2017-06-29] MEDS: LEVOFLOXACIN INJ 750 MG in PREMIX 1 EACH IV SCH (20:22)
[2017-06-29] MEDS: predniSONE 20 MG TABLET PO SCH (20:24)
[2017-06-30] MEDS: ALBUTEROL/IPRATROPIUM 3 ML NEB RESP TX SCH ×3 (00:22→13:00)
[2017-06-30] MEDS: PIPERACILLIN/TAZOBACTAM 3,375 MG in SODIUM CHLORIDE 0.9% 100 ML IV SCH ×2 (01:13→10:15)
[2017-06-30] MEDS: oxyCODONE/ACETAMINOPHEN 5-325 MG TABLET PO SCH ×5 (01:16→15:34)
[2017-06-30 05:57] LABS: Calcium 7.5 MG/DL (8.5-10.1); Osmolality,Calculated 256.9 MOS/KG (273-304); Potassium 3.7 MMOL/L (3.5-5.1)
[2017-06-30] MEDS: NYSTATIN 500,000 UNIT/5 ML UDCUP SWISH/SWAL SCH ×2 (11:05→12:17)
[2017-06-30] MEDS: TAMSULOSIN 0.4 MG CAPSULE PO SCH (11:05)
[2017-06-30] MEDS: THEOPHYLLINE ER (24 HR) 300 MG CAPSULE PO SCH (11:05)
[2017-06-30] MEDS: CITALOPRAM 20 MG TABLET PO SCH (11:05)
[2017-06-30] MEDS: NICOTINE 21 MG/24 HR PATCH TRANSDERM SCH (11:06)
[2017-06-30] MEDS: PANTOPRAZOLE 40 MG TABLET PO SCH (11:06)
[2017-06-30] MEDS: POTASSIUM CHLORIDE 20 MEQ TABLET PO SCH (11:06)
[2017-06-30] MEDS: predniSONE 20 MG TABLET PO SCH (11:06)
[2017-06-30] MEDS: ROFLUMILAST 500 MCG TABLET PO SCH (11:06)
[2017-06-30 11:52] VITALS: BP 127/74
[2017-06-30] MEDS ORDERED: SODIUM PHOSPHATE ENEMA 133 ML BOTTLE RECTAL ONE (12:54)
== END 2017-06-30 16:05 | disposition swing bed (61) | DRG 190 ==
LOC: EDUNIT# → EDBD → N.ED 19:21 → N.EDINP 23:06 → N.ICU 06-24 00:01 → N.4E 06-25 08:37
PROVIDERS: ADMIT Specialist; ATTEND Specialist

== ENCOUNTER 2017-10-13 17:34 | Inpatient (IN) ==
[2017-10-13 20:58] LABS: ABG Base Excess 3.3 MMOL/L (-2.5-2.5); ABG HCO3 27.2 MMOL/L (20-26); ABG Oxygen Saturation 93.3 % (95-100); ABG PCO2 36.8 MM HG (35-48); ABG PH 7.471 (7.35-7.45); ABG PO2 62.3 MM HG (80-95); Pt O2 Delivery Device Room Air
[2017-10-13 21:39] LABS: Apearance,Urine CLEAR (Clear); Bilirubin,Urine Negative (Negative); Blood, Urine Small mg/dL (Negative); Glucose,Urine (UA) Negative (Negative); Ketones,Urine 5 mg/dL (Negative); Nitrite,Urine Negative (Negative); Protein,Urine Negative; RBC,Urine 1 /HPF (0-4); Urine Color Yellow (Yellow); Urine Specific Gravity 1.004 (1.001-1.035); Urine Urobilinogen < 2.0 EU/DL (0.2-1.0); WBC,Urine 4 /HPF (0-6)
[2017-10-13] MEDS ORDERED: SODIUM CHLORIDE 0.9% 1,000 ML IV STA (21:53)
[2017-10-13 22:10] LABS: Albumin 3.6 G/DL (3.4-5.0); Bilirubin,Total 0.4 MG/DL (0.2-1.0); Calcium 7.3 MG/DL (8.5-10.1); Osmolality,Calculated 235.5 MOS/KG (273-304); Potassium 3.1 MMOL/L (3.5-5.1); Total Protein 6.4 G/DL (6.4-8.3)
[2017-10-13 22:23] LABS: Basophils % 0.1 % (0.0-0.8); Hematocrit 27.4 VOL% (42.0-52.0); Immature Granulocytes % 1.1 %; Immature Granulocytes Absolute 0.08 #; Lymphocytes # 0.6 10*3/uL (1.4-4.0); Lymphocytes % 8.5 % (21.2-54.2); Mean Corpuscular HGB Conc 39.1 GM/DL (32-36); Mean Corpuscular Hemoglobin 37 PG (27-34); Mean Corpuscular Volume 95.8 FL (87-102); Mean Platelet Volume 8.7 FL (9.6-12.0); Monocytes # 0.4 10*3/uL (0.11-0.8); Monocytes % 5.2 % (1.7-12.7); Neutrophils # 6.4 10*3/uL (1.4-7.4); Neutrophils % 85.1 % (38.7-73.9); Platelet Count 183 T/CUMM (130-400); Red Blood Count 2.86 MC/CUMM (3.8-5.5); Red Cell Distribution Width 12.4 % (9.3-17.3); White Blood Count 7.6 T/CUMM (4-12)
[2017-10-13 22:30] LABS: Hemoglobin 10.7 GM/DL (14.0-18.0)
[2017-10-13] MEDS ORDERED: SODIUM CHLORIDE 0.9% 1,000 ML IV SCH (22:30)
[2017-10-13 22:37] LABS: Band Neutrophils 4 % (0-10); Lymphocytes 4 % (20-55); Platelet Estimate Normal; Segmented Neutrophils 89 % (50-85); Total Cells Counted 100
[2017-10-14] MEDS ORDERED: ALBUTEROL/IPRATROPIUM 3 ML NEB RESP TX PRN (01:04)
[2017-10-14] MEDS ORDERED: MORPHINE 4 MG/1 ML VIAL IV PRN (01:04)
[2017-10-14] MEDS ORDERED: methylPREDNISolone SOD SUC 125 MG/2 ML VIAL IV ONE (01:04)
[2017-10-14] MEDS ORDERED: ONDANSETRON 4 MG/2 ML VIAL IV PRN (01:04)
[2017-10-14] MEDS: SODIUM CHLORIDE 0.9% 1,000 ML IV SCH ×2 (02:09→09:05)
[2017-10-14] MEDS: ALBUTEROL/IPRATROPIUM 3 ML NEB RESP TX SCH ×4 (02:40→20:09)
[2017-10-14 05:07] LABS: Calcium 7.2 MG/DL (8.5-10.1); Osmolality,Calculated 242.8 MOS/KG (273-304); Potassium 3.1 MMOL/L (3.5-5.1); Risk Ratio 3.9; VLDL CHOLESTEROL 24.8 MG/DL
[2017-10-14] MEDS ORDERED: POTASSIUM CHLORIDE 20 MEQ TABLET PO ONE (08:59)
[2017-10-14] MEDS ORDERED: predniSONE 20 MG TABLET PO SCH (09:00)
[2017-10-14] MEDS: levETIRAcetam 500 MG TABLET PO SCH ×2 (09:20→21:03)
[2017-10-14] MEDS: TAMSULOSIN 0.4 MG CAPSULE PO SCH (09:21)
[2017-10-14] MEDS: DOCUSATE SODIUM 100 MG CAPSULE PO SCH ×2 (09:21→21:03)
[2017-10-14] MEDS: PANTOPRAZOLE 40 MG TABLET PO SCH (09:22)
[2017-10-14] MEDS: ASPIRIN EC 81 MG TABLET PO SCH (09:22)
[2017-10-14] MEDS: ENOXAPARIN 40 MG/0.4 ML SYRINGE SUBCUT SCH (09:25)
[2017-10-14] MEDS ORDERED: methylPREDNISolone SOD SUC 40 MG/1 ML VIAL IV SCH (13:00)
[2017-10-14 15:07] LABS: Calcium 7.3 MG/DL (8.5-10.1); Osmolality,Calculated 247.6 MOS/KG (273-304); Potassium 3.1 MMOL/L (3.5-5.1)
[2017-10-15] MEDS: ALBUTEROL/IPRATROPIUM 3 ML NEB RESP TX SCH ×4 (00:13→19:10)
[2017-10-15] MEDS: BENZONATATE 100 MG CAPSULE PO PRN ×3 (04:08→20:55)
[2017-10-15 06:01] LABS: Calcium 7.1 MG/DL (8.5-10.1); Osmolality,Calculated 250.4 MOS/KG (273-304); Potassium 3.2 MMOL/L (3.5-5.1)
[2017-10-15] MEDS: ENOXAPARIN 40 MG/0.4 ML SYRINGE SUBCUT SCH (09:10)
[2017-10-15] MEDS: predniSONE 20 MG TABLET PO SCH (09:10)
[2017-10-15] MEDS: ASPIRIN EC 81 MG TABLET PO SCH (09:10)
[2017-10-15] MEDS: DOCUSATE SODIUM 100 MG CAPSULE PO SCH ×2 (09:10→20:56)
[2017-10-15] MEDS: levETIRAcetam 500 MG TABLET PO SCH ×2 (09:10→20:55)
[2017-10-15] MEDS: TAMSULOSIN 0.4 MG CAPSULE PO SCH (09:10)
[2017-10-15] MEDS: PANTOPRAZOLE 40 MG TABLET PO SCH (09:10)
[2017-10-15] MEDS: POTASSIUM CHLORIDE 20 MEQ TABLET PO SCH ×2 (11:41→15:45)
[2017-10-15] MEDS ORDERED: DOCUSATE SODIUM 100 MG CAPSULE PO PRN (15:49)
[2017-10-15] MEDS: PHENYTOIN ER 100 MG CAPSULE PO SCH (20:55)
[2017-10-15] MEDS ORDERED: ATORVASTATIN 20 MG TABLET PO SCH (21:00)
[2017-10-16] MEDS: ALBUTEROL/IPRATROPIUM 3 ML NEB RESP TX SCH ×2 (00:26→08:25)
[2017-10-16 06:02] LABS: Calcium 7.5 MG/DL (8.5-10.1); Osmolality,Calculated 254.2 MOS/KG (273-304); Potassium 3.9 MMOL/L (3.5-5.1)
[2017-10-16] MEDS: DOCUSATE SODIUM 100 MG CAPSULE PO SCH (08:59)
[2017-10-16] MEDS: TAMSULOSIN 0.4 MG CAPSULE PO SCH (08:59)
[2017-10-16] MEDS: levETIRAcetam 500 MG TABLET PO SCH (08:59)
[2017-10-16] MEDS: PHENYTOIN ER 100 MG CAPSULE PO SCH (08:59)
[2017-10-16] MEDS: ENOXAPARIN 40 MG/0.4 ML SYRINGE SUBCUT SCH (08:59)
[2017-10-16] MEDS: ASPIRIN EC 81 MG TABLET PO SCH (08:59)
[2017-10-16] MEDS: PANTOPRAZOLE 40 MG TABLET PO SCH (09:00)
[2017-10-16] MEDS: predniSONE 20 MG TABLET PO SCH (09:00)
[2017-10-16 11:44] VITALS: BP 130/62
[2017-10-16] MEDS ORDERED: HEPARIN LOCK FLUSH 500 UNIT/5 ML SYRINGE IV ONE (12:33)
== END 2017-10-16 13:00 | disposition home health service (06) | DRG 641 ==
LOC: N.ED 17:34 → SUATTDRO 23:34 → N.EDINP 23:34 → N.4E 10-14 00:19
PROVIDERS: ADMIT Internal Medicine; ATTEND Internal Medicine

== ENCOUNTER 2018-01-02 21:21 | Inpatient (IN) ==
[2018-01-02] MEDS ORDERED: SODIUM CHLORIDE 0.9% 1,000 ML IV STA (21:49)
[2018-01-02 22:05] LABS: Basophils % 0.1 % (0.0-0.8); Hematocrit 24.3 VOL% (42.0-52.0); Hemoglobin 7.8 GM/DL (14.0-18.0); Immature Granulocytes % 0.7 %; Immature Granulocytes Absolute 0.07 #; Lymphocytes # 0.5 10*3/uL (1.4-4.0); Lymphocytes % 4.7 % (21.2-54.2); Mean Corpuscular HGB Conc 32.1 GM/DL (32-36); Mean Corpuscular Hemoglobin 33 PG (27-34); Mean Corpuscular Volume 101.3 FL (87-102); Mean Platelet Volume 8.9 FL (9.6-12.0); Monocytes # 0.7 10*3/uL (0.11-0.8); Monocytes % 7.3 % (1.7-12.7); Neutrophils # 8.6 10*3/uL (1.4-7.4); Neutrophils % 87.2 % (38.7-73.9); Platelet Count 250 T/CUMM (130-400); Red Cell Distribution Width 13.8 % (9.3-17.3); White Blood Count 9.8 T/CUMM (4-12)
[2018-01-02 22:21] LABS: Calcium 7.5 MG/DL (8.5-10.1); Osmolality,Calculated 285.4 MOS/KG (273-304); Potassium 2.7 MMOL/L (3.5-5.1)
[2018-01-02 22:32] LABS: Anisocytosis Slight; Band Neutrophils 4 % (0-10); Lymphocytes 6 % (20-55); Macrocytosis 3+; Platelet Estimate Normal; Segmented Neutrophils 87 % (50-85); Total Cells Counted 100
[2018-01-02] MEDS ORDERED: POTASSIUM CHLORIDE 20 MEQ TABLET PO STA (23:37)
[2018-01-03] MEDS ORDERED: MORPHINE 4 MG/1 ML VIAL IV PRN (01:54)
[2018-01-03] MEDS ORDERED: ONDANSETRON 4 MG/2 ML VIAL IV PRN (01:54)
[2018-01-03] MEDS ORDERED: IBUPROFEN 400 MG TABLET PO PRN (01:54)
[2018-01-03] MEDS ORDERED: BENZONATATE 100 MG CAPSULE PO PRN (01:54)
[2018-01-03] MEDS ORDERED: oxyCODONE/ACETAMINOPHEN 5-325 MG TABLET PO PRN (01:54)
[2018-01-03] MEDS ORDERED: SODIUM CHLORIDE 0.9% 1,000 ML IV PRN (01:54)
[2018-01-03] MEDS ORDERED: ALBUTEROL 2.5 MG/3 ML NEB RESP TX PRN (01:54)
[2018-01-03] MEDS ORDERED: ACETAMINOPHEN 325 MG TABLET PO PRN (01:54)
[2018-01-03] MEDS ORDERED: LIDOCAINE 2% VISCOUS 100 ML BOTTLE SWISH/SWAL PRN (01:54)
[2018-01-03] MEDS: LACTULOSE 20 GM/30 ML UDCUP PO SCH ×3 (02:28→22:11)
[2018-01-03] MEDS: SODIUM CHLOR 0.9% KCL 20 MEQ 20 MEQ/1,000 ML BAG IV SCH (02:30)
[2018-01-03] MEDS ORDERED: MAGNESIUM SULF RIDER 1 GM in PREMIX 1 EACH IV ONE (02:30)
[2018-01-03] MEDS ORDERED: SODIUM PHOSPHATE ENEMA 133 ML BOTTLE RECTAL ONE (02:30)
[2018-01-03] MEDS: cefTRIAXone 1,000 MG in SYRINGE 1 EACH IV SCH (02:31)
[2018-01-03] MEDS: CLINDAMYCIN INJ 600 MG in PREMIX 1 EACH IV SCH ×3 (04:09→18:10)
[2018-01-03 05:19] LABS: Basophils % 0.2 % (0.0-0.8); Eosinophils % 0.1 % (0.00-10.9); Hematocrit 25.3 VOL% (42.0-52.0); Hemoglobin 8.2 GM/DL (14.0-18.0); Immature Granulocytes % 0.7 %; Immature Granulocytes Absolute 0.07 #; Lymphocytes # 0.5 10*3/uL (1.4-4.0); Lymphocytes % 5.2 % (21.2-54.2); Mean Corpuscular HGB Conc 32.4 GM/DL (32-36); Mean Corpuscular Hemoglobin 33 PG (27-34); Mean Corpuscular Volume 100.8 FL (87-102); Mean Platelet Volume 9.2 FL (9.6-12.0); Monocytes # 0.8 10*3/uL (0.11-0.8); Monocytes % 7.5 % (1.7-12.7); Neutrophils # 8.9 10*3/uL (1.4-7.4); Neutrophils % 86.3 % (38.7-73.9); Platelet Count 278 T/CUMM (130-400); Red Blood Count 2.51 MC/CUMM (3.8-5.5); Red Cell Distribution Width 14.1 % (9.3-17.3); White Blood Count 10.3 T/CUMM (4-12)
[2018-01-03 05:24] LABS: Calcium 7.7 MG/DL (8.5-10.1); Osmolality,Calculated 285.4 MOS/KG (273-304); Potassium 2.9 MMOL/L (3.5-5.1)
[2018-01-03] MEDS ORDERED: POTASSIUM CHLORIDE 20 MEQ TABLET PO ONE (07:22)
[2018-01-03] MEDS: ALBUTEROL/IPRATROPIUM 3 ML NEB RESP TX SCH ×3 (07:34→20:37)
[2018-01-03] MEDS ORDERED: Umeclidinium Brm/Vilanterol Tr [Anoro Ellipta] INH SCH (09:00)
[2018-01-03] MEDS: FOLIC ACID 0.4 MG TABLET PO SCH (10:18)
[2018-01-03] MEDS: CALCIUM (CARBONATE)/VITAMIN D 600 MG-400 UNIT TABLET PO SCH (10:18)
[2018-01-03] MEDS: ASPIRIN EC 81 MG TABLET PO SCH (10:19)
[2018-01-03] MEDS: POTASSIUM GLUCONATE 500 MG TABLET PO SCH (10:19)
[2018-01-03] MEDS: PANTOPRAZOLE 40 MG TABLET PO SCH (10:19)
[2018-01-03] MEDS: levETIRAcetam 500 MG TABLET PO SCH ×2 (10:19→22:11)
[2018-01-03] MEDS: NYSTATIN 500,000 UNIT/5 ML UDCUP SWISH/SWAL SCH ×2 (10:19→22:11)
[2018-01-03] MEDS: TAMSULOSIN 0.4 MG CAPSULE PO SCH (10:19)
[2018-01-03] MEDS: ENOXAPARIN 40 MG/0.4 ML SYRINGE SUBCUT SCH (10:20)
[2018-01-03] MEDS: ATORVASTATIN 20 MG TABLET PO SCH (22:11)
[2018-01-03] MEDS: DOCUSATE SODIUM 100 MG CAPSULE PO SCH (22:11)
[2018-01-03] MEDS: POLYETHYLENE GLYCOL POWDER 17 GM PACK PO SCH (22:11)
[2018-01-04] MEDS: ALBUTEROL/IPRATROPIUM 3 ML NEB RESP TX SCH ×6 (00:50→23:20)
[2018-01-04] MEDS: SODIUM CHLOR 0.9% KCL 20 MEQ 20 MEQ/1,000 ML BAG IV SCH ×3 (00:53→14:21)
[2018-01-04] MEDS: cefTRIAXone 1,000 MG in SYRINGE 1 EACH IV SCH (02:33)
[2018-01-04] MEDS: CLINDAMYCIN INJ 600 MG in PREMIX 1 EACH IV SCH ×3 (03:20→18:31)
[2018-01-04 06:09] LABS: Basophils % 0.1 % (0.0-0.8); Eosinophils % 0.3 % (0.00-10.9); Hematocrit 30.3 VOL% (42.0-52.0); Immature Granulocytes % 0.3 %; Immature Granulocytes Absolute 0.03 #; Lymphocytes # 0.5 10*3/uL (1.4-4.0); Lymphocytes % 5.1 % (21.2-54.2); Mean Corpuscular Hemoglobin 31 PG (27-34); Mean Corpuscular Volume 93.2 FL (87-102); Mean Platelet Volume 9.3 FL (9.6-12.0); Monocytes # 0.8 10*3/uL (0.11-0.8); Neutrophils # 7.5 10*3/uL (1.4-7.4); Neutrophils % 85.2 % (38.7-73.9); Platelet Count 212 T/CUMM (130-400); Red Blood Count 3.25 MC/CUMM (3.8-5.5); Red Cell Distribution Width 18.4 % (9.3-17.3); White Blood Count 8.8 T/CUMM (4-12)
[2018-01-04 06:41] LABS: Calcium 7.4 MG/DL (8.5-10.1); Potassium 3.3 MMOL/L (3.5-5.1)
[2018-01-04] MEDS: LEVOTHYROXINE 25 MCG TABLET PO SCH (07:49)
[2018-01-04] MEDS: oxyCODONE/ACETAMINOPHEN 5-325 MG TABLET PO PRN (07:49)
[2018-01-04] MEDS: DOCUSATE SODIUM 100 MG CAPSULE PO SCH ×2 (08:42→20:03)
[2018-01-04] MEDS: LACTULOSE 20 GM/30 ML UDCUP PO SCH ×2 (08:42→20:03)
[2018-01-04] MEDS: POLYETHYLENE GLYCOL POWDER 17 GM PACK PO SCH ×2 (08:43→20:03)
[2018-01-04] MEDS: ENOXAPARIN 40 MG/0.4 ML SYRINGE SUBCUT SCH (08:43)
[2018-01-04] MEDS: CALCIUM (CARBONATE)/VITAMIN D 600 MG-400 UNIT TABLET PO SCH (08:44)
[2018-01-04] MEDS: POTASSIUM GLUCONATE 500 MG TABLET PO SCH (08:44)
[2018-01-04] MEDS: PANTOPRAZOLE 40 MG TABLET PO SCH (08:44)
[2018-01-04] MEDS: ASPIRIN EC 81 MG TABLET PO SCH (08:44)
[2018-01-04] MEDS: levETIRAcetam 500 MG TABLET PO SCH ×2 (08:44→20:03)
[2018-01-04] MEDS: FOLIC ACID 0.4 MG TABLET PO SCH (08:44)
[2018-01-04] MEDS: NYSTATIN 500,000 UNIT/5 ML UDCUP SWISH/SWAL SCH ×2 (08:44→20:02)
[2018-01-04] MEDS: TAMSULOSIN 0.4 MG CAPSULE PO SCH (08:44)
[2018-01-04] MEDS ORDERED: methylPREDNISolone SOD SUC 125 MG/2 ML VIAL IV ONE (11:22)
[2018-01-04] MEDS ORDERED: ALBUTEROL/IPRATROPIUM 3 ML NEB RESP TX STA (11:34)
[2018-01-04] MEDS ORDERED: AMINOPHYLLINE 500 MG in SODIUM CHLORIDE 0.9% 100 ML IV ONE (11:40)
[2018-01-04] MEDS ORDERED: TERBUTALINE 1 MG/1 ML VIAL SUBCUT ONE (11:43)
[2018-01-04] MEDS ORDERED: SODIUM CHLORIDE 0.9% 500 ML IV ONE (11:44)
[2018-01-04 11:53] LABS: ABG Base Excess -7.2 MMOL/L (-2.5-2.5); ABG HCO3 18.6 MMOL/L (20-26); ABG Oxygen Saturation 99.3 % (95-100); ABG PCO2 50.2 MM HG (35-48); ABG PH 7.224 (7.35-7.45)
[2018-01-04] MEDS ORDERED: AMINOPHYLLINE 500 MG in SODIUM CHLORIDE 0.9% 480 ML IV SCH (12:00)
[2018-01-04 15:02] LABS: ABG Base Excess -6.8 MMOL/L (-2.5-2.5); ABG HCO3 18.8 MMOL/L (20-26); ABG Oxygen Saturation 92.9 % (95-100); ABG PCO2 32.4 MM HG (35-48); ABG PH 7.351 (7.35-7.45); ABG PO2 71.2 MM HG (80-95); ABG TCO2 16.2 MMOL/L (23-27)
[2018-01-04] MEDS: methylPREDNISolone SOD SUC 40 MG/1 ML VIAL IV SCH (17:32)
[2018-01-04] MEDS: ATORVASTATIN 20 MG TABLET PO SCH (20:02)
[2018-01-04] MEDS: MYLANTA/LIDO VISC 2:1 300 ML BOTTLE SWISH/SPIT SCH (20:03)
[2018-01-05] MEDS: methylPREDNISolone SOD SUC 40 MG/1 ML VIAL IV SCH ×5 (00:55→23:41)
[2018-01-05] MEDS: SODIUM CHLOR 0.9% KCL 20 MEQ 20 MEQ/1,000 ML BAG IV SCH ×2 (00:56→14:20)
[2018-01-05 01:15] LABS: Apearance,Urine CLEAR (Clear); Bilirubin,Urine Negative (Negative); Blood, Urine Small mg/dL (Negative); Glucose,Urine (UA) Negative (Negative); Hyaline Casts,Urine 15 /LPF (0-3); Ketones,Urine Negative (Negative); Mucus,Urine Occasional /LPF (Occasional); Nitrite,Urine Negative (Negative); Protein,Urine Negative; RBC,Urine 1 /HPF (0-4); Squamous Epithelial Cell,Urine Occasional /HPF (0-10); Urine Color Yellow (Yellow); Urine Urobilinogen < 2.0 EU/DL (0.2-1.0); WBC,Urine 4 /HPF (0-6)
[2018-01-05] MEDS: cefTRIAXone 1,000 MG in SYRINGE 1 EACH IV SCH (03:05)
[2018-01-05] MEDS: ALBUTEROL/IPRATROPIUM 3 ML NEB RESP TX SCH ×6 (03:15→23:41)
[2018-01-05] MEDS: CLINDAMYCIN INJ 600 MG in PREMIX 1 EACH IV SCH ×3 (03:16→18:13)
[2018-01-05] MEDS: oxyCODONE/ACETAMINOPHEN 5-325 MG TABLET PO PRN (05:22)
[2018-01-05] MEDS: LEVOTHYROXINE 25 MCG TABLET PO SCH (05:33)
[2018-01-05] MEDS ORDERED: POTASSIUM CHLORIDE 20 MEQ TABLET PO PRN (08:17)
[2018-01-05] MEDS ORDERED: POTASSIUM CHLORIDE RIDER 10 MEQ in PREMIX 1 EACH IV PRN (08:17)
[2018-01-05] MEDS: ASPIRIN EC 81 MG TABLET PO SCH (09:23)
[2018-01-05] MEDS: CALCIUM (CARBONATE)/VITAMIN D 600 MG-400 UNIT TABLET PO SCH (09:24)
[2018-01-05] MEDS: LACTULOSE 20 GM/30 ML UDCUP PO SCH ×2 (09:24→20:35)
[2018-01-05] MEDS: DOCUSATE SODIUM 100 MG CAPSULE PO SCH ×2 (09:24→20:35)
[2018-01-05] MEDS: TAMSULOSIN 0.4 MG CAPSULE PO SCH (09:24)
[2018-01-05] MEDS: MYLANTA/LIDO VISC 2:1 300 ML BOTTLE SWISH/SPIT SCH ×3 (09:25→20:41)
[2018-01-05] MEDS: FOLIC ACID 0.4 MG TABLET PO SCH (09:25)
[2018-01-05] MEDS: NYSTATIN 500,000 UNIT/5 ML UDCUP SWISH/SWAL SCH ×2 (09:25→20:35)
[2018-01-05] MEDS: POTASSIUM GLUCONATE 500 MG TABLET PO SCH (09:26)
[2018-01-05] MEDS: levETIRAcetam 500 MG TABLET PO SCH ×2 (09:26→20:34)
[2018-01-05] MEDS: POLYETHYLENE GLYCOL POWDER 17 GM PACK PO SCH ×2 (09:26→20:35)
[2018-01-05] MEDS: PANTOPRAZOLE 40 MG TABLET PO SCH (09:35)
[2018-01-05] MEDS: ENOXAPARIN 40 MG/0.4 ML SYRINGE SUBCUT SCH (09:35)
[2018-01-05 10:31] LABS: Basophils % 0.1 % (0.0-0.8); Hematocrit 31.9 VOL% (42.0-52.0); Hemoglobin 10.5 GM/DL (14.0-18.0); Immature Granulocytes % 1.1 %; Immature Granulocytes Absolute 0.16 #; Lymphocytes # 0.2 10*3/uL (1.4-4.0); Lymphocytes % 1.6 % (21.2-54.2); Mean Corpuscular HGB Conc 32.9 GM/DL (32-36); Mean Corpuscular Hemoglobin 31 PG (27-34); Mean Corpuscular Volume 94.4 FL (87-102); Mean Platelet Volume 8.7 FL (9.6-12.0); Monocytes # 0.5 10*3/uL (0.11-0.8); Monocytes % 3.4 % (1.7-12.7); Neutrophils # 13.3 10*3/uL (1.4-7.4); Neutrophils % 93.8 % (38.7-73.9); Platelet Count 196 T/CUMM (130-400); Red Blood Count 3.38 MC/CUMM (3.8-5.5); Red Cell Distribution Width 18.2 % (9.3-17.3); White Blood Count 14.2 T/CUMM (4-12)
[2018-01-05 10:45] LABS: Calcium 7.9 MG/DL (8.5-10.1); Osmolality,Calculated 283.4 MOS/KG (273-304); Potassium 3.9 MMOL/L (3.5-5.1)
[2018-01-05 10:52] LABS: Band Neutrophils 2 % (0-10); Hypochromasia 1+; Lymphocytes 2 % (20-55); Platelet Estimate Adequate; Segmented Neutrophils 94 % (50-85); Total Cells Counted 100
[2018-01-05] MEDS: ATORVASTATIN 20 MG TABLET PO SCH (20:34)
[2018-01-06] MEDS: cefTRIAXone 1,000 MG in SYRINGE 1 EACH IV SCH (03:18)
[2018-01-06] MEDS: CLINDAMYCIN INJ 600 MG in PREMIX 1 EACH IV SCH ×2 (03:21→11:56)
[2018-01-06] MEDS: ALBUTEROL/IPRATROPIUM 3 ML NEB RESP TX SCH ×4 (03:42→14:05)
[2018-01-06 05:07] LABS: Basophils % 0.1 % (0.0-0.8); Hematocrit 28.7 VOL% (42.0-52.0); Hemoglobin 9.5 GM/DL (14.0-18.0); Immature Granulocytes % 1.3 %; Immature Granulocytes Absolute 0.23 #; Lymphocytes # 0.2 10*3/uL (1.4-4.0); Lymphocytes % 1.3 % (21.2-54.2); Mean Corpuscular HGB Conc 33.1 GM/DL (32-36); Mean Corpuscular Hemoglobin 30 PG (27-34); Mean Corpuscular Volume 91.7 FL (87-102); Mean Platelet Volume 9.1 FL (9.6-12.0); Monocytes # 0.7 10*3/uL (0.11-0.8); Monocytes % 3.8 % (1.7-12.7); Neutrophils # 16.7 10*3/uL (1.4-7.4); Neutrophils % 93.5 % (38.7-73.9); Platelet Count 196 T/CUMM (130-400); Red Blood Count 3.13 MC/CUMM (3.8-5.5); Red Cell Distribution Width 18.1 % (9.3-17.3); White Blood Count 17.8 T/CUMM (4-12)
[2018-01-06 05:18] LABS: Osmolality,Calculated 290.7 MOS/KG (273-304); Potassium 3.9 MMOL/L (3.5-5.1)
[2018-01-06 05:42] LABS: Band Neutrophils 2 % (0-10); Lymphocytes 1 % (20-55); Segmented Neutrophils 96 % (50-85); Total Cells Counted 100
[2018-01-06 05:43] LABS: Acanthocytes Few; Hypochromasia Slight; Microcytosis 1+; Platelet Estimate Adequate
[2018-01-06] MEDS: methylPREDNISolone SOD SUC 40 MG/1 ML VIAL IV SCH ×2 (05:51→14:02)
[2018-01-06] MEDS: LEVOTHYROXINE 25 MCG TABLET PO SCH (05:52)
[2018-01-06] MEDS: LACTULOSE 20 GM/30 ML UDCUP PO SCH (10:15)
[2018-01-06] MEDS: ASPIRIN EC 81 MG TABLET PO SCH (10:15)
[2018-01-06] MEDS: TAMSULOSIN 0.4 MG CAPSULE PO SCH (10:15)
[2018-01-06] MEDS: POTASSIUM GLUCONATE 500 MG TABLET PO SCH (10:15)
[2018-01-06] MEDS: DOCUSATE SODIUM 100 MG CAPSULE PO SCH (10:15)
[2018-01-06] MEDS: PANTOPRAZOLE 40 MG TABLET PO SCH (10:15)
[2018-01-06] MEDS: FOLIC ACID 0.4 MG TABLET PO SCH (10:15)
[2018-01-06] MEDS: POLYETHYLENE GLYCOL POWDER 17 GM PACK PO SCH (10:21)
[2018-01-06] MEDS: ENOXAPARIN 40 MG/0.4 ML SYRINGE SUBCUT SCH (10:22)
[2018-01-06] MEDS: CALCIUM (CARBONATE)/VITAMIN D 600 MG-400 UNIT TABLET PO SCH (10:22)
[2018-01-06] MEDS: levETIRAcetam 500 MG TABLET PO SCH (10:24)
[2018-01-06] MEDS: NYSTATIN 500,000 UNIT/5 ML UDCUP SWISH/SWAL SCH (10:29)
[2018-01-06] MEDS: MYLANTA/LIDO VISC 2:1 300 ML BOTTLE SWISH/SPIT SCH ×2 (11:58→15:55)
[2018-01-06] MEDS ORDERED: HEPARIN LOCK FLUSH 500 UNIT/5 ML SYRINGE IV ONE (14:01)
[2018-01-06 16:32] VITALS: BP 116/68
== END 2018-01-06 17:45 | disposition hospice, home (50) | DRG 811 ==
LOC: EDBD → EDUNIT# → N.ED 21:21 → N.EDINP 01-03 01:07 → N.4E 01-03 01:52 → N.CC 01-04 12:18 → N.4E 01-05 17:29
PROVIDERS: ADMIT Hospitalist; ATTEND Hospitalist